=== PATIENT | female | born 1965 | race African-American/Black ===

== ENCOUNTER 2018-05-22 20:14 | Emergency (ER) | payer MEDICAID, OTHER ==
[~2018-05-22] VITALS: Ht 180.3 cm; Wt 108.9 kg
[~2018-05-22 20:14] MED LIST: IBUPROFEN600 MG ORAL; NITROFURANTOIN100 M2 ORAL; NKM; NORCO 5-325 TA1 EACH PO; PHENAZOPYRIDIN200 MG ORAL; TRAMADOL HCL50 MG ORAL
[2018-05-22 20:38] VITALS: BP 156/88
[2018-05-22] MEDS ORDERED: Norco 5mg/325mg tab ORAL ONE (20:45)
[2018-05-22] MEDS ORDERED: Cyclobenzaprine 10mg Tab ORAL ONE (20:45)
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
[2018-05-22] MEDS ORDERED: ROBAXIN500 MG PO (21:24)
[2018-05-22 21:32] LABS: APPEARANCE,URINE CLEAR; BILIRUBIN, URINE NEGATIVE (NEGATIVE); COLOR,URINE PALE YELLOW; GLUCOSE, URINE (UA) NEGATIVE (NEGATIVE); KETONES,URINE NEGATIVE (NEGATIVE); LEUKOCYTE ESTERASE ,URINE 1+ (NEGATIVE); NITRITE,URINE NEGATIVE (NEGATIVE); PH,URINE 5 (4.5-8.0); PROTEIN,URINE NEGATIVE (NEGATIVE); UROBILINOGEN,URINE NORMAL MG/DL (0.0-1.0)
--- NOTE | 2018-05-22 21:37 | Diagnostic Imaging Report ---
History: PAIN Exam: CT L SPINE Without Contrast Technique more: CTDI is 35.75 mGy and DLP is 979 mGy-cm. Technique more: One or more of the following dose reduction techniques were used: automated exposure control, adjustment of the mA and/or kV according to patient size, use of iterative reconstruction technique. Comparison: None available FINDINGS: No fracture or malalignment. Multilevel spondylosis/discogenic change with hypertrophic facet degenerative changes. Hypertrophic bone formation left L5-S1 foramina resulting in foraminal stenosis for example sagittal 50. Nonobstructing left intrarenal stone. IMPRESSION: No fracture or malalignment.
--- NOTE | 2018-05-22 21:47 | Diagnostic Imaging Report ---
History: PAIN Exam: CT HEAD Without Contrast Technique more: CTDI is 70.38 mGy and DLP is 1411.05 mGy-cm. Technique more: One or more of the following dose reduction techniques were used: automated exposure control, adjustment of the mA and/or kV according to patient size, use of iterative reconstruction technique. Comparison: 05/25/2012 FINDINGS: No intracranial hemorrhage, mass effect or calvarial fracture. The ventricles are unchanged in size and remain midline. The visualized paranasal sinuses, mastoids and orbits are within limits. IMPRESSION: No intracranial hemorrhage, mass effect or calvarial fracture.
--- NOTE | 2018-05-22 21:51 | Diagnostic Imaging Report ---
History: PAIN Exam: CT C SPINE Without Contrast Technique more: CTDI is 17.06 mGy and DLP is 356.56 mGy-cm. Technique more: One or more of the following dose reduction techniques were used: automated exposure control, adjustment of the mA and/or kV according to patient size, use of iterative reconstruction technique. Comparison: None available FINDINGS: No fracture or malalignment. Spondylosis. Multilevel lumbar anterior osteophyte formation is greatest at C4-5. Can be seen associated with dysphagia. IMPRESSION: No fracture or malalignment. Spondylosis. Multilevel lumbar anterior osteophyte formation is greatest at C4-5. Can be seen associated with dysphagia.
[2018-05-22 21:55] VITALS: BP 148/85
== END 2018-05-22 21:55 | disposition home or self-care (01) ==
LOC: EMR 21:10
DX: S16.1XXA Strain of muscle, fascia and tendon at neck level, initial encounter (principal); S39.012A Strain of muscle, fascia and tendon of lower back, initial encounter; V43.53XA Car driver injured in collision with pick-up truck in traffic accident, initial encounter; Y92.410 Unspecified street and highway as the place of occurrence of the external cause; R51 Headache; M47.812 Spondylosis without myelopathy or radiculopathy, cervical region
CPT/HCPCS: 70450; 72125; 72131; 80307; 81003; 99284